=== PATIENT | female | born 1940 | race Caucasian/White ===

== ENCOUNTER → 2017-11-17 | Day surgery (SDC) | payer MEDICARE ==
[~2017-11-17] VITALS: Ht 165.1 cm; Wt 59.0 kg
[~2017-11-17] MED LIST: ACETAMINOPHEN 1000 MG/100 ML 100 ML IV ONE; CHLORHEXIDINE GLUCONATE 2 % 1 PACK (2 CLOTHS) TOPICAL PRN; CIPR250T52 PO; CIPROFLOXACIN/DEXT 400 MG/200 ML IV SCH; HYDR-3288 PO; LACTATED RINGER'S 1000 ML IV PRN; LIDOCAINE HCL 1% PF 5 ML SYRINGE OTHER ONE; LIDOCAINE HCL 2% 50 ML VIAL ONE; LISI10TA3 PO; LOVA10TA PO; METOPROLOL TARTRATE 25 MG TAB PO PRN; MIDAZOLAM HCL 2 MG/2 ML VIAL ONE; NEOMYCIN/POLYMYXIN 1 ML G.U. IRRIGANT ONE; ONDANSETRON HCL 4 MG/2 ML VIAL IV PUSH ONE; POVIDONE IODINE 5% (ANTISEPSIS KIT) 4 APPLICATIONS EACH NARE PRN; PROPOFOL 200 MG/20 ML AMP IV ONE; SODIUM CHLORID 0.9% 500 ML IV PRN
[2017-11-17] MEDS: BUPIVACAINE HCL PF 0.5% 30 ML VIAL ONE ×2 (10:06→10:33)
[2017-11-17 10:55] VITALS: PULSE 63
[2017-11-17 11:51] VITALS: BP 141/82; PULSE 63; RESP 16; TEMP 97.5; O2SAT 99
--- NOTE | 2017-11-17 14:28 | MP ---
cc: MARTÍNEZ MORALES III, M.D. DATE OF SURGERY: 11/17/2017 PREOPERATIVE DIAGNOSIS 1. Right carpal tunnel syndrome. 2. Right middle finger trigger finger. PROCEDURE PERFORMED 1. Right open carpal tunnel release. 2. Right middle finger A1 dale release. SURGEON Martínez Morales III, MD PROCEDURE The patient was brought to the operating room and placed supine on the operating table. After the correct site and side of surgery were verified by members of each team in the room multiple times, including the patient, myself and after adequate preoperative markings, preoperative written consent were verified by everyone and after adequate preoperative time-out was performed to everyone's satisfaction, after adequate IV sedation had been achieved, the right upper extremity was prepped and draped in the traditional sterile surgical fashion. A 50/50 mixture of 2% plain lidocaine, 0.5% plain Marcaine was infiltrated in the skin and subcutaneous tissue at the base of the palm overlying the middle finger A1 dale. The limb was exsanguinated with Michael wrap, highly placed well-padded axillary tourniquet was inflated to 200 mmHg for a total of 15 minutes. Longitudinally oriented incision at the base of the palm was made and carried down through the skin and subcutaneous tissue. The palmar fascia was retracted in opposite directions. The transverse carpal ligament was then transected in its entirety to the ulnar side of its midline under loupe visualization completely freeing the carpal tunnel and all of its contents. They were intact and did not appear to be otherwise compromised. There was no evidence of any mass effect or any other obvious abnormality. Thorough irrigation was performed with saline. The skin edge was reapproximated using running 4-0 Nylon sutures. Attention was then paid to the right middle finger A1 dale. A transversely oriented incision within the skin creases was made on the area of the A1 dale, blunt dissection was performed. The A1 dale was identified and divided in its entirety. It was found to be very thickened and redundant and there was obvious inflammation on the tendon but the tendon was intact and otherwise non-compromised. Exploration proximally did not reveal any evidence of any constriction or other tissue that could cause constriction. There were no other anatomic abnormalities identified. Thorough irrigation with saline was performed. The skin edges were reapproximated using running 4-0 Nylon suture. The hand and arm were thoroughly cleansed and dried. Betadine and Adaptic dressing was applied on top of the wounds followed by a bulky soft dressing. The axillary tourniquet was released. The hand and all the fingers on the right became immediately soft, pink and warm and had brisk capillary refill of less than 2-second. The patient was awakened from anesthesia and transported to the Post Anesthesia Care Unit awake and in stable condition at the end of the case. Sponge, needle, instrument counts were correct at the end of the case as reported by nurses in the room. MD BRANT Alfonso III/BRIANNE /11:01 AM /2:09 PM
--- NOTE | 2017-11-18 14:17 | EKG ---
Date Performed: 11/17/2017 Time Performed: 09:00:39 PTAGE: 77 years EKG: Sinus rhythm NORMAL ECG NO PREVIOUS TRACING DOCTOR: Neptali Colin Interpretating Date/Time 11/18/2017 14:15:31
== END | disposition home or self-care (01) ==
LOC: PHSDC 08:19
PROVIDERS: ATTEND Orthopaedic Surgery Hand Surgery
DX: G56.01 Carpal tunnel syndrome, right upper limb (principal); M65.331 Trigger finger, right middle finger; I10 Essential (primary) hypertension; Z01.810 Encounter for preprocedural cardiovascular examination
CPT/HCPCS: 01810; 26055; 64721; 93005; J0131; J0744; J2250; J2405; J3010; J7120